=== PATIENT | male | born 1965 | race African-American/Black ===

== ENCOUNTER 2017-02-10 02:25 | Observation (INO) | payer OTHER ==
[2017-02-10 02:41] VITALS: BMI 40.4
--- NOTE | 2017-02-10 02:42 | PDOC ---
History of Present Illness - General History Source: Patient, Family () Exam Limitations: No Limitations - History of Present Illness Initial Comments: 02/10/17 03:05 The patient is a 51 year old male, with a significant past medical history of HTN, DM who presents to the emergency department with sudden onset of diarrhea, nausea/vomiting and abdominal pain. Patient states he had a meal at 2 PM this afternoon and 6 hours later patient experienced these symptoms. Patient had an outside meal with oxtails, vannessa greens and cabbage. Patient denies any nonbloody/nonbilious vomiting. He denies chest pain, headache or dizziness. He denies fever, chills, constipation. He denies dysuria, frequency, urgency or hematuria. PAST MEDICAL HISTORY: HTN, DM PAST SURGICAL HISTORY: None FAMILY HISTORY: no pertinent history SOCIAL HISTORY: Pt lives with family and is employed. MEDICATIONS: reviewed ALLERGIES: NKA General: No fevers or chills, no weakness, no weight loss HEENT: No change in vision. No sore throat, No ear pain CardioVascular: No chest pain or shortness of breath Respiratory:No cough, or wheezing. Gastrointestinal: +nausea, vomiting, diarrhea, abdominal pain. No constipation. No rectal bleeding Genitourinary: No dysuria, hematuria, or frequency Musculoskeletal: No joint or muscle pain or swelling Neurologic: No headache, vertigo, dizziness or loss of consciousness Psychiatric: No depression Skin: No rashes or easy bruising Endocrine: no increased thirst or abnormal weight change Allergic: no skin or latex allergy All other systems reviewed and normal General: Well-nourished well-developed individual, in + mild acute distress. + Uncomfortable appearing. +Morbidly obese. HEENT: Throat: Normal, tonsils normal, no erythema or exudate Neck: Supple, no meningeal signs, no lymphadenopathy Eyes::Pupils equal reactive and round, extraocular motion intact Chest: Nontender to palpation Cardiac: S1-S2 normal, regular rate and rhythm, no murmurs rubs or gallops Respiratory: Lungs clear to auscultation bilateral Abdomen: + LUQ tenderness to palpation. +Epigastric tenderness to palpation. Soft, normal bowel sounds. No guarding no rebound. Extremities: Warm, dry, no cyanosis, clubbing, or edema Skin: No rashes Neuro: Alert and oriented x3, nonfocal exam, grossly intact, normal gait Psych: Normal mood and affect EKG Reviewed and interpreted by me Sinus tachycardia <Kriss Newton - Last Filed: 02/10/17 03:31> - General History Source: Patient Exam Limitations: No Limitations - History of Present Illness Initial Comments: 02/10/17 A portion of this note was documented by scribe services under my direction. I have reviewed the details of the note, within reason, and agree with the documentation. The case summary and management plan written by me. Assessment and plan: This is a 49-year-old male who comes in complaining of nausea and vomiting and diarrhea. Patient on evaluation was noted to have some peaked T's on his cardiogram and a MARKEDLY elevated potassium of 7.0 evaluation was 333 and he probably renal function was elevated with a creatinine of 1.6. Patient was given calcium gluconate and insulin. He is being hydrated with fluids and will be admitted to an observation telemetry bed. <Seema Figueroa I - Last Filed: 02/10/17 04:28> - General Chief Complaint: Nausea/Vomiting Stated Complaint: NAUSEA/VOMITING Time Seen by Provider: 02/10/17 02:41 Past History <Kriss Newton - Last Filed: 02/10/17 03:31> - Past Medical History Diabetes: Yes HTN: Yes Hypercholesterolemia: Yes Psychiatric Problems: Yes (DEPRESSION.) - Psycho/Social/Smoking Cessation Hx Anxiety: No Suicidal Ideation: No Smoking Status: No Smoking History: Never smoked Have you smoked in the past 12 months: No Number of Cigarettes Smoked Daily: 0 Information on smoking cessation initiated: No Hx Alcohol Use: No Drug/Substance Use Hx: No Substance Use Type: None Hx Substance Use Treatment: No <Seema Figueroa I - Last Filed: 02/10/17 04:28> - Past Medical History Allergies/Adverse Reactions: Allergies Allergy/AdvReac Type Severity Reaction Status Date / Time No Known Allergies Allergy Verified 02/10/17 02:39 Home Medications: Ambulatory Orders Amlodipine Besylate [Norvasc -] 10 mg PO DAILY 04/24/16 Carvedilol 12.5 mg PO BID 04/24/16 Glipizide [Glipizide ER] 10 mg PO BID 04/24/16 Sildenafil Citrate [Viagra] 100 mg PO DAILY 04/24/16 Simvastatin 20 mg PO HS 04/24/16 Hydrochlorothiazide [Hctz -] 12.5 mg PO DAILY #0 04/26/16 Lisinopril [Prinivil] 10 mg PO DAILY #30 tablet 04/26/16 *Physical Exam - Vital Signs Last Vital Signs Temp Pulse Resp BP Pulse Ox 97.1 F L 112 H 20 127/72 97 02/10/17 02:39 02/10/17 02:39 02/10/17 02:39 02/10/17 02:39 02/10/17 02:39 <Kriss Newton - Last Filed: 02/10/17 03:31> - Vital Signs Last Vital Signs Temp Pulse Resp BP Pulse Ox 97.1 F L 112 H 20 127/72 97 02/10/17 02:39 02/10/17 02:39 02/10/17 02:39 02/10/17 02:39 02/10/17 02:39 <Seema Figueroa I - Last Filed: 02/10/17 04:28> ED Treatment Course - LABORATORY CBC & Chemistry Diagram: 02/10/17 02:45 02/10/17 02:45 - Medications Given in the ED: ED Medications Discontinued Medications Generic Name Dose Route Start Last Admin Trade Name Ryanq PRN Reason Stop Dose Admin Ondansetron HCl 8 mg 02/10/17 02:48 02/10/17 02:52 Zofran Injection IVPB 02/10/17 02:49 8 mg ONCE ONE Administration <Kriss Newton - Last Filed: 02/10/17 03:31> - LABORATORY CBC & Chemistry Diagram: 02/10/17 02:45 02/10/17 02:45 <Seema Figueroa I - Last Filed: 02/10/17 04:28> *DC/Admit/Observation/Transfer - Attestations Scribe Attestion: 02/10/17 03:06 Documentation prepared by Kriss Newton, acting as medical education specialist for Seema Figueroa MD <Kriss Newton - Last Filed: 02/10/17 03:31> - Discharge Dispostion Admit: Yes <Seema Figueroa I - Last Filed: 02/10/17 04:28> Diagnosis at time of Disposition: Hyperkalemia ARF (acute renal failure) Qualifiers: Acute renal failure type: unspecified Qualified Code(s): N17.9 - Acute kidney failure, unspecified Nausea and vomiting Qualifiers: Vomiting type: unspecified Vomiting Intractability: non-intractable Qualified Code(s): R11.2 - Nausea with vomiting, unspecified - Referrals Referrals: Aman Schumacher MD [Primary Care Provider] -
[2017-02-10] MEDS ORDERED: SODIUM CHLORIDE 1,000 ML IV ONE (02:48)
[2017-02-10] MEDS ORDERED: ONDANSETRON 4 MG/2 ML VIAL IVPB ONE (02:48)
[2017-02-10] MEDS ORDERED: HYOSCYAMINE SULFATE 0.125 MG *ODT PO ONE (02:49)
[2017-02-10] MEDS ORDERED: ONDANSETRON 4 MG/2 ML VIAL ONE (02:52)
[2017-02-10 02:57] LABS: BASOPHIL 0.4 % (0-2.0); EOSINOPHIL 0.7 % (0-4.5); MCH 27.6 pg (25.7-33.7); MEAN CELL VOLUME 83.7 fl (80-96); MEAN PLT VOLUME 7.9 fl (7.5-11.1); NEUTROPHILS 88.6 % (42.8-82.8); PLATELET COUNT 257 K/MM3 (134-434); RDW 13.6 % (11.9-15.9); WHITE BLOOD COUNT 11.6 K/mm3 (4.0-10.0)
[2017-02-10 03:23] LABS: ALK PHOS 64 U/L (45-117); ANION GAP 9 (8-16); BILIRUBIN,TOTAL 0.5 mg/dL (0.2-1.0); CALCIUM 9.8 mg/dL (8.5-10.1); CO2 24 mmol/L (21-32); CREATININE 1.6 mg/dL (0.7-1.3); SGOT/AST 21 U/L (15-37); SGPT/ALT 31 U/L (12-78); TOT PROT 8.3 g/dl (6.4-8.2)
[2017-02-10 03:25] LABS: GLUCOSE,RANDOM 333 mg/dL (74-106)
[2017-02-10] MEDS ORDERED: LOPERAMIDE HCL 2 MG CAPSULE PO ONE (03:28)
[2017-02-10] MEDS ORDERED: INSULIN REGULAR HUMAN 100 UNITS/ML *VIAL IVPUSH ONE (03:32)
[2017-02-10] MEDS ORDERED: CALCIUM GLUCONATE 10% - 1,000 MG/10 ML VIAL IVPB ONE (03:32)
[2017-02-10] MEDS ORDERED: LOPERAMIDE HCL 2 MG CAPSULE ONE (03:41)
[2017-02-10] MEDS ORDERED: CALCIUM GLUCONATE 10% - 1,000 MG/10 ML VIAL ONE (03:41)
[2017-02-10] MEDS: SODIUM CHLORIDE 1,000 ML IV SCH (05:30)
--- NOTE | 2017-02-10 05:48 | HP ---
CHIEF COMPLAINT: nausea/vomiting PCP: Aman Schumacher HISTORY OF PRESENT ILLNESS: History taken from . Patient is a 51 y/o obese m with a past medical history of hypertension and diabetes, presented today because of nausea, vomiting and non-bloody wattery diarrhea that started after eating oxtails last night with his . Patient also complained of LUQ and LLQ , cramping abdominal pain that occurred at the same time. He says vomiting alleviated the pain. He was admitted because of the same symptoms in 2015 which she says was likely because of dehydration. He denies chest pain, headache or dizziness. He denies fever, chills, constipation. He denies dysuria , frequency, urgency or hematuria. ER course was notable for: (1) Chest X Ray (2) EKG Recent Travel: None PAST MEDICAL HISTORY: Hypertension, Diabetes PAST SURGICAL HISTORY: N/A Social History: Smoking: denies Alcohol: rarely Drugs: denies Family History: Allergies No Known Allergies Allergy (Verified 02/10/17 02:39) HOME MEDICATIONS: Home Medications Medication Instructions Recorded Amlodipine Besylate [Norvasc -] 10 mg PO DAILY 04/24/16 Carvedilol 12.5 mg PO BID 04/24/16 Glipizide [Glipizide ER] 10 mg PO BID 04/24/16 Sildenafil Citrate [Viagra] 100 mg PO DAILY 04/24/16 Simvastatin 20 mg PO HS 04/24/16 Hydrochlorothiazide [Hctz -] 12.5 mg PO DAILY #0 04/26/16 Lisinopril [Prinivil] 10 mg PO DAILY #30 tablet 04/26/16 REVIEW OF SYSTEMS CONSTITUTIONAL: Absent: fever, chills, diaphoresis, generalized weakness, malaise, loss of appetite, weight change HEENT: Absent: rhinorrhea, nasal congestion, throat pain, throat swelling, difficulty swallowing, mouth swelling, ear pain, eye pain, visual changes CARDIOVASCULAR: Absent: chest pain, syncope, palpitations, irregular heart rate, lightheadedness , peripheral edema RESPIRATORY: Absent: cough, shortness of breath, dyspnea with exertion, orthopnea, wheezing, stridor, hemoptysis GASTROINTESTINAL: abdominal pain, nausea, vomiting, diarrhea Absent: melena, hematochezia GENITOURINARY: Absent: dysuria, frequency, urgency, hesitancy, hematuria, flank pain, genital pain MUSCULOSKELETAL: Absent: myalgia, arthralgia, joint swelling, back pain, neck pain SKIN: Absent: rash, itching, pallor HEMATOLOGIC/IMMUNOLOGIC: Absent: easy bleeding, easy bruising, lymphadenopathy, frequent infections ENDOCRINE: Absent: unexplained weight gain, unexplained weight loss, heat intolerance, cold intolerance NEUROLOGIC: Absent: headache, focal weakness or paresthesias, dizziness, unsteady gait, seizure, mental status changes, bladder or bowel incontinence PSYCHIATRIC: Absent: anxiety, depression, suicidal or homicidal ideation, hallucinations. PHYSICAL EXAMINATION GENERAL: NAD A/O x 3 HEAD: Normal with no signs of trauma. EYES: Pupils equal, round and reactive to light, extraocular movements intact, sclera anicteric, conjunctiva clear. EARS, NOSE, THROAT: oropharynx clear without exudates. Moist mucous membranes. NECK: No LAD, JVD, or masses. LUNGS: Breath sounds equal, clear to auscultation bilaterally. No wheezes, and no crackles. No accessory muscle use. HEART: tachy, normal S1 and S2 without murmur, rub or gallop. ABDOMEN: Soft, tender to palpation in LLQ>LUQ, not distended, normoactive bowel sounds, no guarding, no rebound, no masses. No hepatomegaly or splenomegaly. MUSCULOSKELETAL: No CVA tenderness. UPPER EXTREMITIES: 2+ pulses, warm, well-perfused. No cyanosis. No clubbing. No peripheral edema. LOWER EXTREMITIES: 2+ pulses, warm, well-perfused. No calf tenderness. No peripheral edema. SKIN: Warm, dry, normal turgor, no rashes or lesions noted, normal capillary refill. ASSESSMENT/PLAN: #Hyperkalemia secondary to ALBINO vs. CKD -Hx of elevated BUN/Creatinine, Potassium -Potassium today 7.0 -Peaked T waves on EKG -In ER : Given Calcium gluconate, D50, Insulin 10U -Will f/U labs in the morning. -F/U HA1c -Contact PMD for baseline creatinine. -F/u U/A, urine electrolytes, Urine creatinine -F/U nephrology outpatient #Gastroenteritis -low grade fever -abdominal pain and diarrhea after eating. -FOBT ordered #DM -ISS -will monitor #HTN -held lisinopril -will monitor FEN: -Started IV fluids NS 100 cc/hour -Repleted Magnesium -Hyperkalemia will continue to monitor. DVT PPX: -Heparin 500 SQ Visit type - Emergency Visit Emergency Visit: Yes ED Registration Date: 02/10/17 Care time: The patient presented to the Emergency Department on the above date and was hospitalized for further evaluation of their emergent condition. - New Patient This patient is new to me today: Yes Date on this admission: 02/10/17 - Critical Care Critical Care patient: No
[2017-02-10 05:51] LABS: CPK 306 IU/L (39-308); TROPONIN I < 0.02 ng/ml (0.00-0.05)
[2017-02-10] MEDS ORDERED: HEPARIN NA (PORCINE) 5,000 UNITS/ML 1ML VIAL ONE (05:58)
[2017-02-10] MEDS: HEPARIN NA (PORCINE) 5,000 UNITS/ML 1ML VIAL SQ SCH ×3 (06:18→18:02)
[2017-02-10 06:22] LABS: MCH 27.5 pg (25.7-33.7); MCHC 33.3 g/dl (32.0-35.9); MEAN CELL VOLUME 82.8 fl (80-96); MEAN PLT VOLUME 7.6 fl (7.5-11.1); PLATELET COUNT 246 K/MM3 (134-434); RDW 13.6 % (11.9-15.9)
[2017-02-10 06:44] LABS: ANION GAP 5 (8-16); CO2 26 mmol/L (21-32); CREATININE 1.6 mg/dL (0.7-1.3); GLUCOSE,RANDOM 284 mg/dL (74-106); MAGNESIUM 1.5 mg/dL (1.8-2.4); PHOSPHOROUS 2.8 mg/dL (2.5-4.9)
--- NOTE | 2017-02-10 06:54 | PN ---
Teaching Attending Note Name of Resident: Ciera Alexander ATTENDING PHYSICIAN STATEMENT I saw and evaluated the patient. I reviewed the resident's note and discussed the case with the resident. I agree with the resident's findings and plan as documented. SUBJECTIVE: 51 y/o M , known to me from prior admission, presented with to ED c/ o nausea, vomiting and multiple episodes of nonbloody diarrhea after eating oxtail. PMH significant for DM2 not adequately controlled with oral medication. OBJECTIVE: A&Ox3, in mild distress, PERRLA, MMM CVS: RRR, S1,S2 no M/G/R Lungs: CTA, no wheezing Abd: obese, NT, ND, BS+ no guarding or rebound, no CVA tenderness Ext no edema CBCD WBC 10.0 K/mm3 (4.0-10.0) 02/10/17 06:00 RBC 4.39 M/mm3 (4.00-5.60) 02/10/17 06:00 Hgb 12.1 GM/dL (11.7-16.9) 02/10/17 06:00 Hct 36.4 % (35.4-49) 02/10/17 06:00 MCV 82.8 fl (80-96) 02/10/17 06:00 MCHC 33.3 g/dl (32.0-35.9) 02/10/17 06:00 RDW 13.6 % (11.9-15.9) 02/10/17 06:00 Plt Count 246 K/MM3 (134-434) 02/10/17 06:00 MPV 7.6 fl (7.5-11.1) 02/10/17 06:00 CMP Sodium 136 mmol/L (136-145) 02/10/17 06:00 Potassium 5.6 mmol/L (3.5-5.1) H 02/10/17 06:00 Chloride 105 mmol/L (98-107) 02/10/17 06:00 Carbon Dioxide 26 mmol/L (21-32) 02/10/17 06:00 Anion Gap 5 (8-16) L 02/10/17 06:00 BUN 27 mg/dL (7-18) H 02/10/17 06:00 Creatinine 1.6 mg/dL (0.7-1.3) H 02/10/17 06:00 Creat Clearance w eGFR 45.62 (>60) 02/10/17 02:45 Random Glucose 284 mg/dL (74-106) H 02/10/17 06:00 Calcium 9.0 mg/dL (8.5-10.1) 02/10/17 06:00 Total Bilirubin 0.5 mg/dL (0.2-1.0) D 02/10/17 02:45 AST 21 U/L (15-37) D 02/10/17 02:45 ALT 31 U/L (12-78) D 02/10/17 02:45 Alkaline Phosphatase 64 U/L (45-117) 02/10/17 02:45 Total Protein 8.3 g/dl (6.4-8.2) H 02/10/17 02:45 Albumin 4.0 g/dl (3.4-5.0) 02/10/17 02:45 CARDIAC ENZYMES Creatine Kinase 306 IU/L (39-308) 02/10/17 02:45 Troponin I < 0.02 ng/ml (0.00-0.05) 02/10/17 02:45 ASSESSMENT AND PLAN: Acute Gastroenteritis- Supportive care, IVF, zofran Hyperkalemia- cocktail given in Ed F/U potassium in AM ALBINO- hold lisinopril and get UA, UElectrolytes and Ucr and refer to nephrology Patient counselled on the need to better controll DM2 with insulin, complications and poorly controlled DM2 explained. Patient agreed to start insulin. RISS and get HgbA1c.
[2017-02-10] MEDS ORDERED: MAGNESIUM SULF 50% (8.12 MEQ/2 ML-1 GM VIAL) IVPB ONE ×2 (07:26→09:15)
[2017-02-10 09:51] LABS: URINE APPEARANCE CLEAR; URINE BILIRUBIN NEGATIVE (NEGATIVE); URINE BLOOD 1+ (NEGATIVE); URINE COLOR LTYELLOW; URINE GLUCOSE (UA) 3+ (NEGATIVE); URINE KETONE TRACE (NEGATIVE); URINE LEUK ESTERASE NEGATIVE (NEGATIVE); URINE NITRITE NEGATIVE (NEGATIVE); URINE PROTEIN 2+ (NEGATIVE); URINE UROBILINOGEN NEGATIVE mg/dL (0.2-1.0)
[2017-02-10 09:54] LABS: URINE HYALINE CAST 4 /lpf; URINE MUCUS RARE; URINE RBC 1 /hpf (0-3); URINE WBC <1 /hpf (3-5)
--- NOTE | 2017-02-10 10:18 | HOSP ---
Subjective - Review of Symptoms Subjective: PT seen and examined. He feels well, hungry, denies further nausea, vomiting, palpitations, MOSELEY. Physical Examination Vital Signs: Vital Signs Temperature 100.5 F H 02/10/17 06:50 Pulse Rate 125 H 02/10/17 06:50 Respiratory Rate 18 02/10/17 06:50 Blood Pressure 139/72 02/10/17 06:50 O2 Sat by Pulse Oximetry (%) 100 02/10/17 05:27 Constitutional: Yes: Well Nourished, Calm Eyes: Yes: Conjunctiva Clear HENT: Yes: Atraumatic Neck: Yes: Trachea Midline Cardiovascular: Yes: Regular Rate and Rhythm, S1, S2 Respiratory: Yes: Regular, CTA Bilaterally Gastrointestinal: Yes: Normal Bowel Sounds, Soft Musculoskeletal: Yes: WNL Edema: No Neurological: Yes: Alert, Oriented Labs: CBC, BMP 02/10/17 06:00 02/10/17 06:00 Hospitalist Encounter Assessment: Assessment: 51 year old male with HTN, DM II, admitted with acute gastritis and electrolyte disarray Plan: 1. Hyperkalemia - Improved - Possibly combination of dehydration plus meds, ?CKD - Renal studies sent - Continue IVF - Hold FIDE/HCTZ 2. Acute Gastritis - Advance diet today, tolerating fulls - Nausea/vomiting resolved - Continue IVF 3. Hypomagnesemia - Replete mg 2gm x1 4. DM II, uncontrolled - Hgb a1c 10.9 - Hold po antidiabetics - ISS, BGM ACHS 5. HTN - Hold FIDE/HCTZ - Resume home amlodipine, coreg 6. HLD - Statin HS 7. ALBINO - Appears at baseline - Continue IVF - Hold FIDE/HCTZ - On diuretics, will need to obtain urine urea for FeNA
[2017-02-10] MEDS: CARVEDILOL 12.5 MG TABLET (FP) PO SCH ×2 (11:01→21:13)
[2017-02-10] MEDS: amLODIPine BESYLATE 10 MG TABLET (FP) PO SCH (11:01)
[2017-02-10] MEDS: INSULIN SLIDING SCALE (NOVOLOG) 1 VIAL SQ SCH ×3 (12:02→21:12)
[2017-02-10] MEDS ORDERED: ATORVASTATIN CA 10 MG TABLET (FP) PO SCH (22:00)
[2017-02-11] MEDS: HEPARIN NA (PORCINE) 5,000 UNITS/ML 1ML VIAL SQ SCH (01:24)
[2017-02-11] MEDS: SODIUM CHLORIDE 1,000 ML IV SCH (06:09)
[2017-02-11] MEDS: INSULIN SLIDING SCALE (NOVOLOG) 1 VIAL SQ SCH (06:10)
[2017-02-11 08:26] LABS: ANION GAP 8 (8-16); CALCIUM 7.7 mg/dL (8.5-10.1); CO2 24 mmol/L (21-32); CREATININE 1.3 mg/dL (0.7-1.3); GLUCOSE,RANDOM 179 mg/dL (74-106); MAGNESIUM 1.9 mg/dL (1.8-2.4)
[2017-02-11] MEDS: CARVEDILOL 12.5 MG TABLET (FP) PO SCH (09:22)
[2017-02-11] MEDS: amLODIPine BESYLATE 10 MG TABLET (FP) PO SCH (09:22)
--- NOTE | 2017-02-11 09:55 | DS ---
Physical Exam: SUBJECTIVE: Patient seen and examined. He feels well, has no complaints has returned to baseline. OBJECTIVE: Vital Signs Period Temp Pulse Resp BP Sys/Kline Pulse Ox Last 24 Hr 98.5 F-99.7 F 73-115 18-19 94-128/46-76 93-100 Constitutional: Yes: Well Nourished, Calm Eyes: Yes: Conjunctiva Clear HENT: Yes: Atraumatic Neck: Yes: Trachea Midline Cardiovascular: Yes: Regular Rate and Rhythm, S1, S2 Respiratory: Yes: Regular, CTA Bilaterally Gastrointestinal: Yes: Normal Bowel Sounds, Soft Musculoskeletal: Yes: WNL Edema: No Neurological: Yes: Alert, Oriented Laboratory Results - last 24 hr 02/10/17 02/10/17 02/10/17 08:00 08:00 08:00 Sodium Potassium Chloride Carbon Dioxide Anion Gap BUN Creatinine POC Glucometer Random Glucose Calcium Magnesium Urine Color Ltyellow Urine Appearance Clear Urine pH 5.0 Ur Specific [place] 1.015 Urine Protein 2+ H Urine Glucose (UA) 3+ H Urine Ketones Trace H Urine Blood 1+ H Urine Nitrite Negative Urine Bilirubin Negative Urine Urobilinogen Negative Urine RBC 1 Urine WBC <1 Hyaline Casts 4 Urine Mucus Rare Ur Random Sodium 74 Ur Random Potassium 61.1 Ur Random Chloride 101 Urine Creatinine 112.0 02/11/17 02/11/17 05:45 06:05 Sodium 136 Potassium 4.5 Chloride 104 Carbon Dioxide 24 Anion Gap 8 BUN 27 H Creatinine 1.3 POC Glucometer 168 Random Glucose 179 H D Calcium 7.7 L Magnesium 1.9 D Urine Color Urine Appearance Urine pH Ur Specific [place] Urine Protein Urine Glucose (UA) Urine Ketones Urine Blood Urine Nitrite Urine Bilirubin Urine Urobilinogen Urine RBC Urine WBC Hyaline Casts Urine Mucus Ur Random Sodium Ur Random Potassium Ur Random Chloride Urine Creatinine HOSPITAL COURSE: Date of Admission:02/10/17 Date of Discharge: 02/11/17 Minutes to complete discharge: 37 Discharge Summary Reason For Visit: ACUTE RENAL FAILURE, HYPERKALEMIA Current Active Problems ARF (acute renal failure) (Acute) Hyperkalemia (Acute) Nausea & vomiting (Acute) Hospital Course: Initial Hospital Course: Briefly, this 51 year old obese male with pmhx HTN, DM II was admitted with nausea, vomiting and non-bloody watery diarrhea d after eating oxtails last night with his . Patient also complained of LUQ and LLQ, cramping abdominal pain that occurred at the same time. He says vomiting alleviated the pain. He was admitted because of the same symptoms in March 2016 which she says was likely because of dehydration. Subsequent Hospital Course/Progress Note/Discharge Summary by a/p: Assessment: 51 year old male with HTN, DM II, admitted with acute gastritis and electrolyte disarray Plan: 1. Hyperkalemia - Received hyperkalemia cocktail in ED and continuous fluids - Resolved on discharge - Hold HCTZ until pcp follow up 2. Acute Gastritis - Resolved 3. Hypomagnesemia - Repleted and resolved 4. DM II, uncontrolled - Hgb a1c 10.9, previously 12 - Resume oral meds - Discussed diet and exercise importance with patient he agrees and is aware, additionally to discuss adding additional anti diabetic agent during next PCP visit 5. HTN - Controlled, continue amlodipine, coreg - Resume lisinopril - Stop HCTZ until pcp follow up 6. HLD - Statin HS 7. ALBINO - Likely pre renal, improved and resolved with fluids - Renal referral enclosed - Stop HCTZ Dispo: - Home with pcp follow up, nephrology referral enclosed - Meds as listed above - Pt aware and agrees to above plan Condition: Stable - Instructions Diet, Activity, Other Instructions: Please return to the ED for any new, persistent, or worsening symptoms. Follow up with your PCP in 1 week. Resume home medication as directed. Stop HCTZ until follow up with primary care doctor Referral information for [place] [facility] enclosed Referrals: Aman Schumacher MD [Primary Care Provider] - Jairon Cameron MD [Staff Physician] - Disposition: HOME - Home Medications Comprehensive Discharge Medication List: Ambulatory Orders Amlodipine Besylate [Norvasc -] 10 mg PO DAILY 04/24/16 Carvedilol 12.5 mg PO BID 04/24/16 Glipizide [Glipizide ER] 10 mg PO BID 04/24/16 Sildenafil Citrate [Viagra] 100 mg PO PRN 04/24/16 Simvastatin 20 mg PO HS 04/24/16 Lisinopril [Prinivil] 10 mg PO DAILY #30 tablet 04/26/16 This patient is new to me today: Yes Date on this admission: 02/11/17 Emergency Visit: Yes ED Registration Date: 02/10/17 Care time: The patient presented to the Emergency Department on the above date and was hospitalized for further evaluation of their emergent condition. Critical Care patient: No - Discharge Referral Referred to [facility] No
[2017-02-11 10:17] VITALS: BP 139/71; PULSE 88; TEMP 98
--- NOTE | 2017-02-12 16:45 | EKG ---
Test Reason : Blood Pressure : / mmHG Vent. Rate : 110 BPM Atrial Rate : 110 BPM P-R Int : 158 ms QRS Dur : 094 ms QT Int : 336 ms P-R-T Axes : 052 012 020 degrees QTc Int : 454 ms SINUS TACHYCARDIA OTHERWISE NORMAL ECG WHEN COMPARED WITH ECG OF 24-APR-2016 17:09, T WAVE VARIATION Confirmed by EKATERINA GALLARDO MD ([id number]) on 02/12/2017 4:45:02 PM Referred By: Confirmed By:EKATERINA GALLARDO MD
== END 2017-02-11 11:59 | disposition home or self-care (01) ==
LOC: JER 02:25 → J4W 04:28 → JERBED 04:28 → UNDOADMOB 04:45 → JERBED 04:45
PROVIDERS: ADMIT Internal Medicine; ATTEND Nurse Practitioner Acute Care
PROC: 3E013GC Introduction of Other Therapeutic Substance into Subcutaneous Tissue, Percutaneous Approach (ICD-10-PCS; principal; 2017-02-10)
PROC: 3E033VG Introduction of Insulin into Peripheral Vein, Percutaneous Approach (ICD-10-PCS; 2017-02-10)
PROC: 3E033GC Introduction of Other Therapeutic Substance into Peripheral Vein, Percutaneous Approach (ICD-10-PCS; 2017-02-10)
PROC: 3E033GC Introduction of Other Therapeutic Substance into Peripheral Vein, Percutaneous Approach (ICD-10-PCS; 2017-02-10)
DX: E87.5 Hyperkalemia (principal); K29.00 Acute gastritis without bleeding; I10 Essential (primary) hypertension; E11.65 Type 2 diabetes mellitus with hyperglycemia; E78.00 Pure hypercholesterolemia, unspecified; N17.9 Acute kidney failure, unspecified
CPT/HCPCS: 36415; 71010-TC; 80048; 80053; 81003; 81015; 82436; 82553; 82570; 83036; 83690; 83735; 84100; 84133; 84300; 84484; 85025; 85027; 93005; 93010; 99285-25; G0378; J1644

== ENCOUNTER 2022-01-16 12:51 | Inpatient (IN) | payer BC, OTHER ==
[2022-01-16 15:47] LABS: BASO % 0.9 % (0-2.0); EOS % 3.7 % (0-4.5); HEMATOCRIT 39.6 % (35.4-49); HEMOGLOBIN 12.9 GM/dL (11.7-16.9); LYMPH % 39.6 % (8-40); MCH 27.2 pg (25.7-33.7); MCHC 32.7 g/dl (32.0-35.9); MEAN CELL VOLUME 83.3 fl (80-96); MEAN PLT VOLUME 7.3 fl (7.5-11.1); MONO % 9.8 % (3.8-10.2); PLATELET COUNT 231 10^3/uL (134-434); RBC 4.75 M/mm3 (4.00-5.60); RDW 14.7 % (11.9-15.9); WHITE BLOOD COUNT 5.5 K/mm3 (4.0-10.0)
[2022-01-16 15:55] LABS: CALCIUM 10.1 mg/dL (8.5-10.1)
[2022-01-16 15:56] LABS: ALBUMIN 3.8 g/dl (3.4-5.0); BLOOD UREA NITROGEN 30.7 mg/dL (7-18)
[2022-01-16 15:59] LABS: CREATININE 1.6 mg/dL (0.55-1.3)
[2022-01-16 16:00] LABS: TOT PROT 8.4 g/dl (6.4-8.2)
[2022-01-16 16:01] LABS: BILIRUBIN,TOTAL 0.3 mg/dL (0.2-1)
[2022-01-16] MEDS ORDERED: VANCOMYCIN 1 GM in D5W (PRE-DOCKED) 1,000 MG/250 ML IVPB ONE (16:24)
[2022-01-16] MEDS ORDERED: PIPERACILLIN/TAZOB 3.375 GM 3.375 GM in DEXTROSE 5%-WATER - 50 ML IVPB ONE (16:25)
[2022-01-16] MEDS ORDERED: VANCOMYCIN/WATER FOR INJ (PEG) 1,000 MG/200 ML BAG IVPB ONE (16:27)
[2022-01-16] MEDS ORDERED: PIPERACILLIN/TAZOB 3.375 GM 3.375 GM/50 ML BAG IVPB ONE (16:27)
[2022-01-16] MEDS ORDERED: ACETAMINOPHEN 325 MG TABLET (FP) PO PRN (18:24)
[2022-01-16] MEDS: INSULIN SLIDING SCALE (NOVOLOG) 1 VIAL SQ SCH (22:11)
[2022-01-16] MEDS: INSULIN (LEVEMIR) 100 UNITS/ML UNITS SQ SCH (22:12)
[2022-01-16] MEDS: HEPARIN NA (PORCINE) 5,000 UNITS/ML 1ML VIAL SQ SCH (22:13)
[2022-01-16] MEDS: CARVEDILOL 25 MG TABLET (FP) PO SCH (22:13)
[2022-01-17 00:41] VITALS: BMI 41.1
[2022-01-17] MEDS: INSULIN SLIDING SCALE (NOVOLOG) 1 VIAL SQ SCH ×4 (06:52→22:34)
[2022-01-17 10:10] LABS: HEMOGLOBIN 12.9 GM/dL (11.7-16.9); MCH 27.2 pg (25.7-33.7); MCHC 32.3 g/dl (32.0-35.9); MEAN CELL VOLUME 84.4 fl (80-96); MEAN PLT VOLUME 7.3 fl (7.5-11.1); PLATELET COUNT 211 10^3/uL (134-434); RBC 4.74 M/mm3 (4.00-5.60); RDW 14.5 % (11.9-15.9); WHITE BLOOD COUNT 5.5 K/mm3 (4.0-10.0)
[2022-01-17 10:47] LABS: ALBUMIN 3.6 g/dl (3.4-5.0); BLOOD UREA NITROGEN 28.2 mg/dL (7-18); CALCIUM 9.4 mg/dL (8.5-10.1)
[2022-01-17 10:49] LABS: BILIRUBIN,TOTAL 0.4 mg/dL (0.2-1); TOT PROT 7.8 g/dl (6.4-8.2)
[2022-01-17 10:50] LABS: CREATININE 1.5 mg/dL (0.55-1.3)
[2022-01-17] MEDS: HEPARIN NA (PORCINE) 5,000 UNITS/ML 1ML VIAL SQ SCH ×2 (10:54→22:34)
[2022-01-17] MEDS: CARVEDILOL 25 MG TABLET (FP) PO SCH ×2 (10:54→22:34)
[2022-01-17] MEDS: LISINOPRIL 20 MG TABLET PO SCH (10:54)
[2022-01-17] MEDS: SODIUM ZIRCONIUM CYCLOSILICATE (LOKELMA) 5 GM PACKET PO SCH (17:41)
[2022-01-17 18:49] LABS: PH,URINE 5.5 (5.0-8.0); URINE APPEARANCE CLEAR; URINE BILIRUBIN NEGATIVE (NEGATIVE); URINE COLOR YELLOW; URINE GLUCOSE (UA) 3+ (NEGATIVE); URINE KETONE NEGATIVE (NEGATIVE); URINE LEUK ESTERASE NEGATIVE (NEGATIVE); URINE NITRITE NEGATIVE (NEGATIVE); URINE PROTEIN NEGATIVE (NEGATIVE); URINE UROBILINOGEN 0.2 mg/dL (0.2-1.0)
[2022-01-17] MEDS: INSULIN (LEVEMIR) 100 UNITS/ML UNITS SQ SCH (22:34)
[2022-01-18] MEDS: INSULIN SLIDING SCALE (NOVOLOG) 1 VIAL SQ SCH ×4 (06:50→21:43)
[2022-01-18 09:07] LABS: BLOOD UREA NITROGEN 33.1 mg/dL (7-18)
[2022-01-18 09:08] LABS: ALBUMIN 3.3 g/dl (3.4-5.0)
[2022-01-18 09:10] LABS: CALCIUM 8.7 mg/dL (8.5-10.1)
[2022-01-18 09:11] LABS: CREATININE 1.7 mg/dL (0.55-1.3)
[2022-01-18 09:12] LABS: BILIRUBIN,TOTAL 0.4 mg/dL (0.2-1); TOT PROT 7.3 g/dl (6.4-8.2)
[2022-01-18] MEDS: HEPARIN NA (PORCINE) 5,000 UNITS/ML 1ML VIAL SQ SCH ×2 (09:12→21:43)
[2022-01-18] MEDS: SODIUM ZIRCONIUM CYCLOSILICATE (LOKELMA) 5 GM PACKET PO SCH (09:12)
[2022-01-18] MEDS: CARVEDILOL 25 MG TABLET (FP) PO SCH ×2 (09:12→21:43)
[2022-01-18] MEDS: LISINOPRIL 20 MG TABLET PO SCH (09:12)
[2022-01-18] MEDS ORDERED: INSULIN (NOVOLOG) ASPART 100 UNITS/ML 10ML VIAL ONE (11:27)
[2022-01-18] MEDS ORDERED: LISINOPRIL 20 MG TABLET PO SCH (12:58)
[2022-01-18] MEDS: INSULIN (LEVEMIR) 100 UNITS/ML UNITS SQ SCH (21:44)
[2022-01-19] MEDS: INSULIN SLIDING SCALE (NOVOLOG) 1 VIAL SQ SCH ×4 (06:50→21:35)
[2022-01-19] MEDS ORDERED: BUPIVACAINE HCL/PF 0.5% (5MG/ML) 10 ML VIAL ONE (07:42)
[2022-01-19] MEDS ORDERED: LIDOCAINE HCL 1%, 10 MG/ML (20ML VIAL) ONE (07:42)
[2022-01-19] MEDS ORDERED: LIDOCAINE HCL/PF 2% SDV 5ML VIAL ONE (08:14)
[2022-01-19] MEDS ORDERED: PROPOFOL 20 ML ONE (08:14)
[2022-01-19] MEDS ORDERED: MIDAZOLAM HCL 2 MG/2 ML SINGLE DOSE VIAL ONE (08:14)
[2022-01-19] MEDS ORDERED: ONDANSETRON 4 MG/2 ML VIAL IVPUSH PRN ×2 (08:29→10:54)
[2022-01-19] MEDS ORDERED: SODIUM CHLORIDE 1,000 ML IV SCH ×2 (08:30→10:54)
[2022-01-19] MEDS ORDERED: LIDOCAINE HCL 1%, 10 MG/ML (50 mL VIAL) NR ONE (09:12)
[2022-01-19] MEDS ORDERED: BUPIVACAINE HCL/PF 0.5% (5MG/ML) 10 ML VIAL NR ONE (09:12)
[2022-01-19] MEDS ORDERED: ONDANSETRON 4 MG/2 ML VIAL ONE (09:15)
[2022-01-19] MEDS ORDERED: MINERAL OIL/PETROLATUM,WHITE 3.5 GM TUBE ONE (09:20)
[2022-01-19] MEDS: HEPARIN NA (PORCINE) 5,000 UNITS/ML 1ML VIAL SQ SCH ×2 (10:08→21:23)
[2022-01-19] MEDS: CARVEDILOL 25 MG TABLET (FP) PO SCH ×2 (10:46→21:24)
[2022-01-19] MEDS ORDERED: ACETAMINOPHEN 325 MG TABLET (FP) PO PRN (10:54)
[2022-01-19 14:06] LABS: CALCIUM 8.7 mg/dL (8.5-10.1)
[2022-01-19 14:07] LABS: ALBUMIN 3.2 g/dl (3.4-5.0); BLOOD UREA NITROGEN 29.9 mg/dL (7-18)
[2022-01-19 14:10] LABS: CREATININE 1.8 mg/dL (0.55-1.3)
[2022-01-19 14:11] LABS: BILIRUBIN,TOTAL 0.4 mg/dL (0.2-1); TOT PROT 7.6 g/dl (6.4-8.2)
[2022-01-19] MEDS: INSULIN (LEVEMIR) 100 UNITS/ML UNITS SQ SCH (21:23)
[2022-01-19] MEDS: CEFTRIAXONE 2 GM in DEXTROSE 5%-WATER 100 ML IVPB SCH (21:24)
[2022-01-20] MEDS ORDERED: INSULIN (NOVOLOG) ASPART 100 UNITS/ML 10ML VIAL ONE (06:30)
[2022-01-20] MEDS: INSULIN SLIDING SCALE (NOVOLOG) 1 VIAL SQ SCH ×4 (06:31→21:46)
[2022-01-20 08:59] LABS: HEMATOCRIT 36.6 % (35.4-49); HEMOGLOBIN 11.6 GM/dL (11.7-16.9); MCH 26.6 pg (25.7-33.7); MCHC 31.6 g/dl (32.0-35.9); MEAN CELL VOLUME 84.2 fl (80-96); MEAN PLT VOLUME 7.3 fl (7.5-11.1); PLATELET COUNT 214 10^3/uL (134-434); RBC 4.35 M/mm3 (4.00-5.60); RDW 14.3 % (11.9-15.9); WHITE BLOOD COUNT 4.8 K/mm3 (4.0-10.0)
[2022-01-20 09:31] LABS: CALCIUM 8.8 mg/dL (8.5-10.1)
[2022-01-20 09:32] LABS: BLOOD UREA NITROGEN 42.1 mg/dL (7-18); MAGNESIUM 2.3 mg/dL (1.8-2.4)
[2022-01-20 09:36] LABS: CREATININE 1.9 mg/dL (0.55-1.3)
[2022-01-20] MEDS: CARVEDILOL 25 MG TABLET (FP) PO SCH ×2 (10:57→21:46)
[2022-01-20] MEDS: CEFTRIAXONE 2 GM in DEXTROSE 5%-WATER 100 ML IVPB SCH (10:57)
[2022-01-20] MEDS: HEPARIN NA (PORCINE) 5,000 UNITS/ML 1ML VIAL SQ SCH ×2 (10:57→21:45)
[2022-01-20] MEDS: LISINOPRIL 20 MG TABLET PO SCH (10:58)
[2022-01-20] MEDS: SODIUM ZIRCONIUM CYCLOSILICATE (LOKELMA) 5 GM PACKET PO SCH (15:03)
[2022-01-20] MEDS: INSULIN (LEVEMIR) 100 UNITS/ML UNITS SQ SCH (21:45)
[2022-01-21] MEDS: INSULIN SLIDING SCALE (NOVOLOG) 1 VIAL SQ SCH ×4 (06:36→21:56)
[2022-01-21] MEDS: LISINOPRIL 20 MG TABLET PO SCH (09:09)
[2022-01-21] MEDS: CARVEDILOL 25 MG TABLET (FP) PO SCH ×2 (09:09→21:55)
[2022-01-21] MEDS: SODIUM ZIRCONIUM CYCLOSILICATE (LOKELMA) 5 GM PACKET PO SCH (09:09)
[2022-01-21] MEDS: CEFTRIAXONE 2 GM in DEXTROSE 5%-WATER 100 ML IVPB SCH (09:10)
[2022-01-21] MEDS: HEPARIN NA (PORCINE) 5,000 UNITS/ML 1ML VIAL SQ SCH ×2 (09:11→21:55)
[2022-01-21 10:02] LABS: BLOOD UREA NITROGEN 43.9 mg/dL (7-18)
[2022-01-21 10:03] LABS: MAGNESIUM 2.3 mg/dL (1.8-2.4)
[2022-01-21 10:06] LABS: CREATININE 1.7 mg/dL (0.55-1.3)
[2022-01-21 10:07] LABS: CALCIUM 8.7 mg/dL (8.5-10.1)
[2022-01-21] MEDS: HYDROCHLOROTHIAZIDE 12.5 MG CAPSULE (FP) PO SCH (14:53)
[2022-01-21] MEDS ORDERED: INSULIN (NOVOLOG) ASPART 100 UNITS/ML 10ML VIAL ONE (21:28)
[2022-01-21] MEDS: INSULIN (LEVEMIR) 100 UNITS/ML UNITS SQ SCH (21:55)
[2022-01-22] MEDS: INSULIN SLIDING SCALE (NOVOLOG) 1 VIAL SQ SCH ×4 (06:08→22:12)
[2022-01-22 08:04] LABS: HEMATOCRIT 36.7 % (35.4-49); HEMOGLOBIN 11.7 GM/dL (11.7-16.9); LYMPH % 39.1 % (8-40); MCH 26.6 pg (25.7-33.7); MCHC 31.9 g/dl (32.0-35.9); MEAN CELL VOLUME 83.5 fl (80-96); MEAN PLT VOLUME 7.4 fl (7.5-11.1); MONO % 12.5 % (3.8-10.2); NEUT % 40.4 % (42.8-82.8); PLATELET COUNT 218 10^3/uL (134-434); RDW 14.4 % (11.9-15.9)
[2022-01-22 08:18] LABS: ALBUMIN 3.2 g/dl (3.4-5.0); CALCIUM 8.9 mg/dL (8.5-10.1)
[2022-01-22 08:20] LABS: BLOOD UREA NITROGEN 46.4 mg/dL (7-18)
[2022-01-22 08:22] LABS: CREATININE 1.6 mg/dL (0.55-1.3)
[2022-01-22 08:23] LABS: BILIRUBIN,TOTAL 0.3 mg/dL (0.2-1); TOT PROT 7.2 g/dl (6.4-8.2)
[2022-01-22] MEDS: HYDROCHLOROTHIAZIDE 12.5 MG CAPSULE (FP) PO SCH (10:32)
[2022-01-22] MEDS: CEFTRIAXONE 2 GM in DEXTROSE 5%-WATER 100 ML IVPB SCH (10:32)
[2022-01-22] MEDS: CARVEDILOL 25 MG TABLET (FP) PO SCH ×2 (10:32→22:09)
[2022-01-22] MEDS: LISINOPRIL 20 MG TABLET PO SCH (10:32)
[2022-01-22] MEDS: SODIUM ZIRCONIUM CYCLOSILICATE (LOKELMA) 5 GM PACKET PO SCH (10:32)
[2022-01-22] MEDS: HEPARIN NA (PORCINE) 5,000 UNITS/ML 1ML VIAL SQ SCH ×2 (10:32→22:09)
[2022-01-22] MEDS: INSULIN (LEVEMIR) 100 UNITS/ML UNITS SQ SCH (22:11)
[2022-01-23] MEDS: INSULIN SLIDING SCALE (NOVOLOG) 1 VIAL SQ SCH ×4 (06:43→21:18)
[2022-01-23] MEDS: CARVEDILOL 25 MG TABLET (FP) PO SCH ×2 (10:57→21:20)
[2022-01-23] MEDS: CEFTRIAXONE 2 GM in DEXTROSE 5%-WATER 100 ML IVPB SCH (10:57)
[2022-01-23] MEDS: LISINOPRIL 20 MG TABLET PO SCH (10:57)
[2022-01-23] MEDS: HYDROCHLOROTHIAZIDE 12.5 MG CAPSULE (FP) PO SCH (10:57)
[2022-01-23] MEDS: HEPARIN NA (PORCINE) 5,000 UNITS/ML 1ML VIAL SQ SCH ×2 (10:57→21:20)
[2022-01-23] MEDS ORDERED: INSULIN (NOVOLOG) ASPART 100 UNITS/ML 10ML VIAL ONE (20:50)
[2022-01-23] MEDS: INSULIN (LEVEMIR) 100 UNITS/ML UNITS SQ SCH (21:18)
[2022-01-23 21:49] VITALS: RESP 20; TEMP 98.8
[2022-01-24] MEDS: INSULIN SLIDING SCALE (NOVOLOG) 1 VIAL SQ SCH (06:26)
[2022-01-24 06:31] VITALS: BP 132/87; PULSE 73
[2022-01-24] MEDS ORDERED: SODIUM ZIRCONIUM CYCLOSILICATE (LOKELMA) 5 GM PACKET PO SCH (10:00)
[2022-01-24] MEDS: CARVEDILOL 25 MG TABLET (FP) PO SCH (10:18)
[2022-01-24] MEDS: HYDROCHLOROTHIAZIDE 12.5 MG CAPSULE (FP) PO SCH (10:18)
[2022-01-24] MEDS: LISINOPRIL 20 MG TABLET PO SCH (10:18)
[2022-01-24] MEDS: CEFTRIAXONE 2 GM in DEXTROSE 5%-WATER 100 ML IVPB SCH (10:18)
[2022-01-24] MEDS: HEPARIN NA (PORCINE) 5,000 UNITS/ML 1ML VIAL SQ SCH (10:18)
== END 2022-01-24 11:43 | disposition home or self-care (01) | DRG 988 ==
LOC: JER 12:51 → JERBED 16:01 → J8W 20:24
PROVIDERS: ADMIT Family Medicine; ATTEND Family Medicine
PROC: 0QBQ0ZX Excision of Right Toe Phalanx, Open Approach, Diagnostic (ICD-10-PCS; principal; 2022-01-19 09:12)
PROC: 0JH63XZ Insertion of Tunneled Vascular Access Device into Chest Subcutaneous Tissue and Fascia, Percutaneous Approach (ICD-10-PCS; 2022-01-23)
PROC: 05HM33Z Insertion of Infusion Device into Right Internal Jugular Vein, Percutaneous Approach (ICD-10-PCS; 2022-01-23)
PROC: 3E033GC Introduction of Other Therapeutic Substance into Peripheral Vein, Percutaneous Approach (ICD-10-PCS; 2022-01-23)
DX: E11.69 Type 2 diabetes mellitus with other specified complication (principal); M86.171 Other acute osteomyelitis, right ankle and foot; Z68.41 Body mass index [BMI] 40.0-44.9, adult; E11.42 Type 2 diabetes mellitus with diabetic polyneuropathy; E87.5 Hyperkalemia; E78.5 Hyperlipidemia, unspecified; N18.9 Chronic kidney disease, unspecified; E66.9 Obesity, unspecified; I12.9 Hypertensive chronic kidney disease with stage 1 through stage 4 chronic kidney disease, or unspecified chronic kidney disease
CPT/HCPCS: 36415; 36558; 73630-TC-RT-FY; 77001-TC-FY; 80048; 80053; 80061; 81003; 82962; 83036; 83605; 83735; 85025; 85027; 85651; 87070; 87075; 87205; 93005; 93010; 94760; 99291; C1751; C9803-CS; J1644; U0003; U0005

== ENCOUNTER 2022-01-25 16:11 | Day surgery (SDC) | payer BC, OTHER ==
[2022-01-25 16:52] VITALS: RESP 18; TEMP 98.8
[2022-01-25] MEDS ORDERED: CEFTRIAXONE 2 GM in SODIUM CHLORIDE 100 ML IVPB ONE (17:00)
[2022-01-25 17:51] VITALS: BP 117/69; PULSE 82
== END 2022-01-25 17:51 | disposition home or self-care (01) ==
LOC: FINFUSION 16:11 → FM/S 16:13 → FINFUSION 17:51
PROVIDERS: ATTEND Internal Medicine Infectious Disease
DX: M86.9 Osteomyelitis, unspecified (principal)
CPT/HCPCS: 96365

== ENCOUNTER 2022-01-26 12:41 | Day surgery (SDC) | payer BC, OTHER ==
[2022-01-26] MEDS ORDERED: CEFTRIAXONE 2 GM in SODIUM CHLORIDE 100 ML IVPB ONE (13:15)
[2022-01-26 13:37] VITALS: BP 122/72; PULSE 86; RESP 18; TEMP 98.6
== END 2022-01-26 13:50 | disposition home or self-care (01) ==
LOC: FINFUSION 12:41 → FM/S 12:44 → FINFUSION 13:50
PROVIDERS: ATTEND Internal Medicine Infectious Disease
DX: M86.9 Osteomyelitis, unspecified (principal)
CPT/HCPCS: 96365

== ENCOUNTER 2022-01-27 12:41 | Day surgery (SDC) | payer BC, OTHER ==
[2022-01-27] MEDS ORDERED: CEFTRIAXONE 2 GM in SODIUM CHLORIDE 100 ML IVPB ONE (14:00)
[2022-01-27 14:04] VITALS: BP 111/70; PULSE 79; RESP 18; TEMP 98.9
== END 2022-01-27 14:05 | disposition home or self-care (01) ==
LOC: FINFUSION 12:41 → FM/S 12:42 → FINFUSION 14:05
PROVIDERS: ATTEND Internal Medicine Infectious Disease
DX: M86.9 Osteomyelitis, unspecified (principal)
CPT/HCPCS: 96365

== ENCOUNTER 2022-01-28 12:40 | Day surgery (SDC) | payer BC, OTHER ==
[2022-01-28] MEDS ORDERED: cefTRIAXone 2 GM/100 ML BAG (PRE-DOCKED) IVPB SCH (13:15)
[2022-01-28 13:44] VITALS: BP 111/67; PULSE 82; RESP 16; TEMP 98.3
== END 2022-01-28 13:47 | disposition home or self-care (01) ==
LOC: FINFUSION 12:40 → FM/S 12:41 → FINFUSION 13:47
PROVIDERS: ATTEND Internal Medicine Infectious Disease
DX: M86.9 Osteomyelitis, unspecified (principal)
CPT/HCPCS: 96365

== ENCOUNTER 2022-01-29 11:01 | Day surgery (SDC) | payer BC, OTHER ==
[2022-01-29] MEDS ORDERED: CEFTRIAXONE 2 GM in DEXTROSE 5%-WATER 100 ML IVPB ONE (11:15)
[2022-01-29 11:40] VITALS: BP 136/75; PULSE 81; RESP 16; TEMP 98.6
== END 2022-01-29 11:45 | disposition home or self-care (01) ==
LOC: FINFUSION 11:01 → FM/S 11:07 → FINFUSION 11:45
PROVIDERS: ATTEND Internal Medicine Infectious Disease
DX: M86.9 Osteomyelitis, unspecified (principal)
CPT/HCPCS: 96365

== ENCOUNTER 2022-01-30 11:09 | Day surgery (SDC) | payer BC, OTHER ==
[2022-01-30 11:49] VITALS: BP 125/65; PULSE 72; RESP 16; TEMP 98.5
== END 2022-01-30 11:53 | disposition home or self-care (01) ==
LOC: FINFUSION 11:09 → FM/S 11:10 → FINFUSION 11:53
PROVIDERS: ATTEND Internal Medicine Infectious Disease
DX: M86.9 Osteomyelitis, unspecified (principal)
CPT/HCPCS: 96365; 96367

== ENCOUNTER 2022-01-31 10:29 | Day surgery (SDC) | payer BC, OTHER ==
[2022-01-31] MEDS ORDERED: CEFTRIAXONE 2 GM in SODIUM CHLORIDE 100 ML IVPB ONE (11:00)
[2022-01-31 11:01] VITALS: BP 132/70; PULSE 78; RESP 18; TEMP 98.1
== END 2022-01-31 11:23 | disposition home or self-care (01) ==
LOC: FINFUSION 10:29 → FM/S 10:30 → FINFUSION 11:23
PROVIDERS: ATTEND Internal Medicine Infectious Disease
DX: M86.9 Osteomyelitis, unspecified (principal)
CPT/HCPCS: 96365

== ENCOUNTER 2022-02-01 10:00 | Day surgery (SDC) | payer BC, OTHER ==
[2022-02-01] MEDS ORDERED: CEFTRIAXONE 2 GM in SODIUM CHLORIDE 100 ML IVPB ONE (11:00)
[2022-02-01 11:22] VITALS: BP 137/79; PULSE 75; RESP 18; TEMP 98.6
== END 2022-02-01 11:15 | disposition home or self-care (01) ==
LOC: FINFUSION 10:00 → FM/S 10:01 → FINFUSION 11:15
PROVIDERS: ATTEND Internal Medicine Infectious Disease
DX: M86.9 Osteomyelitis, unspecified (principal)
CPT/HCPCS: 96365

== ENCOUNTER 2022-02-02 12:03 | Day surgery (SDC) | payer BC, OTHER ==
[~2022-02-02 12:03] MED LIST: CEFTRIAXONE 2 GM in SODIUM CHLORIDE 100 ML IVPB ONE
[2022-02-02 12:46] VITALS: BP 144/76; PULSE 78; RESP 16; TEMP 98.2
== END 2022-02-02 12:50 | disposition home or self-care (01) ==
LOC: FINFUSION 12:03 → FM/S 12:03 → FINFUSION 12:50
PROVIDERS: ATTEND Internal Medicine Infectious Disease
DX: M86.9 Osteomyelitis, unspecified (principal)
CPT/HCPCS: 96365

== ENCOUNTER 2022-02-03 11:46 | Day surgery (SDC) | payer BC, OTHER ==
[2022-02-03] MEDS ORDERED: CEFTRIAXONE 2 GM in SODIUM CHLORIDE 100 ML IVPB ONE (12:00)
[2022-02-03 12:57] VITALS: BP 137/81; PULSE 70; RESP 18; TEMP 98.5
== END 2022-02-03 13:09 | disposition home or self-care (01) ==
LOC: FM/S 11:46 → FINFUSION 11:46
PROVIDERS: ATTEND Internal Medicine Infectious Disease
DX: M86.9 Osteomyelitis, unspecified (principal)
CPT/HCPCS: 96365

== ENCOUNTER 2022-02-04 10:54 | Day surgery (SDC) | payer BC, OTHER ==
[2022-02-04] MEDS ORDERED: cefTRIAXone 2 GM/100 ML BAG (PRE-DOCKED) IVPB SCH (11:15)
[2022-02-04 11:49] VITALS: BP 148/73; PULSE 76; RESP 18; TEMP 98.7
== END 2022-02-04 11:52 | disposition home or self-care (01) ==
LOC: FM/S 10:54 → FINFUSION 10:54
PROVIDERS: ATTEND Internal Medicine Infectious Disease
DX: M86.9 Osteomyelitis, unspecified (principal)
CPT/HCPCS: 96365

== ENCOUNTER 2022-02-05 11:26 | Day surgery (SDC) | payer BC, OTHER ==
[2022-02-05] MEDS ORDERED: CEFTRIAXONE 2 GM in DEXTROSE 5%-WATER 100 ML IVPB ONE (12:00)
[2022-02-05 12:58] VITALS: BP 126/70; PULSE 70; RESP 16; TEMP 98.5
== END 2022-02-05 13:05 | disposition home or self-care (01) ==
LOC: FINFUSION 11:26 → FM/S 11:27 → FINFUSION 13:05
PROVIDERS: ATTEND Internal Medicine Infectious Disease
DX: M86.9 Osteomyelitis, unspecified (principal)
CPT/HCPCS: 96365

== ENCOUNTER 2022-02-06 11:26 | Day surgery (SDC) | payer BC, OTHER ==
[2022-02-06] MEDS ORDERED: CEFTRIAXONE 2 GM in SODIUM CHLORIDE 100 ML IVPB ONE (12:00)
[2022-02-06 12:39] VITALS: BP 136/77; PULSE 74; RESP 18; TEMP 98.4
== END 2022-02-06 12:25 | disposition home or self-care (01) ==
LOC: FINFUSION 11:26 → FM/S 11:28 → FINFUSION 12:25
PROVIDERS: ATTEND Internal Medicine Infectious Disease
DX: M86.9 Osteomyelitis, unspecified (principal)
CPT/HCPCS: 96365

== ENCOUNTER 2022-02-07 11:19 | Day surgery (SDC) | payer BC, OTHER ==
[2022-02-07 11:55] VITALS: BP 149/77; PULSE 96; RESP 18; TEMP 98.4
[2022-02-07] MEDS ORDERED: CEFTRIAXONE 2 GM in SODIUM CHLORIDE 100 ML IVPB ONE (12:00)
== END 2022-02-07 13:53 | disposition home or self-care (01) ==
LOC: FINFUSION 11:19 → FM/S 11:22 → FINFUSION 13:53
PROVIDERS: ATTEND Internal Medicine Infectious Disease
DX: M86.9 Osteomyelitis, unspecified (principal)
CPT/HCPCS: 96365

== ENCOUNTER 2022-02-08 11:00 | Day surgery (SDC) | payer BC, OTHER ==
[2022-02-08 11:50] VITALS: BP 126/68; PULSE 79; RESP 18; TEMP 98.7
[2022-02-08] MEDS ORDERED: CEFTRIAXONE 2 GM in SODIUM CHLORIDE 100 ML IVPB ONE (12:00)
== END 2022-02-08 11:47 | disposition home or self-care (01) ==
LOC: FM/S 11:00 → FINFUSION 11:00 → FM/S 11:26 → FINFUSION 11:40
PROVIDERS: ATTEND Internal Medicine Infectious Disease
DX: M86.9 Osteomyelitis, unspecified (principal)
CPT/HCPCS: 96365

== ENCOUNTER 2022-02-09 10:55 | Day surgery (SDC) | payer BC, OTHER ==
[2022-02-09] MEDS ORDERED: CEFTRIAXONE 2 GM in SODIUM CHLORIDE 100 ML IVPB ONE (12:00)
[2022-02-09 12:19] VITALS: BP 122/69; PULSE 69; RESP 18; TEMP 98.4
== END 2022-02-09 12:20 | disposition home or self-care (01) ==
LOC: FINFUSION 10:55 → FM/S 10:56 → FINFUSION 12:20
PROVIDERS: ATTEND Internal Medicine Infectious Disease
DX: M86.9 Osteomyelitis, unspecified (principal)
CPT/HCPCS: 96365

== ENCOUNTER 2022-02-10 11:01 | Day surgery (SDC) | payer BC, OTHER ==
[2022-02-10] MEDS ORDERED: CEFTRIAXONE 2 GM in SODIUM CHLORIDE 100 ML IVPB ONE (12:00)
[2022-02-10 12:28] VITALS: BP 128/71; PULSE 74; RESP 18; TEMP 98.8
== END 2022-02-10 12:30 | disposition home or self-care (01) ==
LOC: FINFUSION 11:01 → FM/S 11:02 → FINFUSION 12:30
PROVIDERS: ATTEND Internal Medicine Infectious Disease
DX: M86.9 Osteomyelitis, unspecified (principal)
CPT/HCPCS: 96365

== ENCOUNTER 2022-02-11 10:41 | Day surgery (SDC) | payer BC, OTHER ==
[2022-02-11] MEDS ORDERED: cefTRIAXone 2 GM/100 ML BAG (PRE-DOCKED) IVPB SCH (11:15)
[2022-02-11 11:46] VITALS: BP 123/68; PULSE 76; RESP 16; TEMP 98.8
== END 2022-02-11 11:49 | disposition home or self-care (01) ==
LOC: FINFUSION 10:41 → FM/S 10:44 → FINFUSION 11:49
PROVIDERS: ATTEND Internal Medicine Infectious Disease
DX: M86.9 Osteomyelitis, unspecified (principal)
CPT/HCPCS: 96365

== ENCOUNTER 2022-02-12 10:42 | Day surgery (SDC) | payer BC, OTHER ==
[2022-02-12] MEDS ORDERED: CEFTRIAXONE 2 GM in DEXTROSE 5%-WATER 100 ML IVPB ONE (11:00)
[2022-02-12 11:37] VITALS: BP 116/63; PULSE 76; RESP 16; TEMP 97.9
== END 2022-02-12 11:47 | disposition home or self-care (01) ==
LOC: FINFUSION 10:42 → FM/S 10:47 → FINFUSION 11:47
PROVIDERS: ATTEND Internal Medicine Infectious Disease
DX: M86.9 Osteomyelitis, unspecified (principal)
CPT/HCPCS: 96365

== ENCOUNTER 2022-02-13 11:05 | Day surgery (SDC) | payer BC, OTHER ==
[2022-02-13] MEDS ORDERED: CEFTRIAXONE 2 GM in SODIUM CHLORIDE 100 ML IVPB ONE (12:00)
[2022-02-13 12:34] VITALS: BP 136/71; PULSE 80; RESP 18; TEMP 98.8
== END 2022-02-13 12:30 | disposition home or self-care (01) ==
LOC: FINFUSION 11:05 → FM/S 11:06 → FINFUSION 12:30
PROVIDERS: ATTEND Internal Medicine Infectious Disease
DX: M86.9 Osteomyelitis, unspecified (principal)
CPT/HCPCS: 96365

== ENCOUNTER 2022-02-14 10:28 | Day surgery (SDC) | payer BC, OTHER ==
[2022-02-14] MEDS ORDERED: CEFTRIAXONE 2 GM in SODIUM CHLORIDE 100 ML IVPB ONE (12:00)
[2022-02-14 12:03] VITALS: BP 126/75; PULSE 76; RESP 17; TEMP 98.1
[2022-02-14 12:04] LABS: HEMATOCRIT 41.8 % (35.4-49); HEMOGLOBIN 13.8 G/dL (11.7-16.9); MCH 28.1 pg (25.7-33.7); MCHC 32.9 g/dl (32.0-35.9); MEAN CELL VOLUME 85.3 fl (80-96); MEAN PLT VOLUME 7.5 fl (7.5-11.1); PLATELET COUNT 236.7 10^3/uL (134-434); RDW 15.5 % (11.9-15.9); WHITE BLOOD COUNT 5.4 10^3/uL (4.0-10.8)
[2022-02-14 12:09] LABS: ANION GAP 2 MMOL/L (8-16); CALCIUM 9.4 mg/dl (8.5-10); CHLORIDE 104 mmol/L (98-107); CO2 27 mmol/L (21-32); CREATININE 1.8 mg/dl (0.55-1.3); GLUCOSE,RANDOM 137 mg/dl (74-106); SODIUM 133 mmol/L (136-145)
[2022-02-14 13:35] LABS: ERYTHROCYTE SEDIMENTATION RATE 15 mm/hr (0-20)
== END 2022-02-14 12:09 | disposition home or self-care (01) ==
LOC: FINFUSION 10:28 → FM/S 10:29 → FINFUSION 12:09
PROVIDERS: ATTEND Internal Medicine Infectious Disease
DX: M86.9 Osteomyelitis, unspecified (principal)
CPT/HCPCS: 36415; 80048; 85027; 85651; 86140; 96365

== ENCOUNTER 2022-02-15 10:53 | Day surgery (SDC) | payer BC, OTHER ==
[2022-02-15 11:41] VITALS: BP 120/63; PULSE 76; RESP 16; TEMP 98.4
[2022-02-15] MEDS ORDERED: CEFTRIAXONE 2 GM in SODIUM CHLORIDE 100 ML IVPB ONE (12:00)
== END 2022-02-15 11:56 | disposition home or self-care (01) ==
LOC: FINFUSION 10:53 → FM/S 10:55 → FINFUSION 11:56
PROVIDERS: ATTEND Internal Medicine Infectious Disease
DX: M86.9 Osteomyelitis, unspecified (principal)
CPT/HCPCS: 96365; 96367

== ENCOUNTER → 2022-02-23 | Day surgery (SDC) | payer BC, OTHER | END | disposition home or self-care (01) | LOC: JRADIR 09:49 | PROVIDERS: ATTEND Internal Medicine Infectious Disease | PROC: 02PY33Z Removal of Infusion Device from Great Vessel, Percutaneous Approach (ICD-10-PCS; principal; 2022-02-23) | DX: Z45.2 Encounter for adjustment and management of vascular access device (principal) | CPT/HCPCS: 36589; 82962; G0277 ==